=== PATIENT | male | born 1955 | race Caucasian/White ===

== ENCOUNTER → 2020-06-21 | Day surgery (SDC) | payer MEDICARE ==
[~2020-06-21] VITALS: Ht 177.8 cm; Wt 99.8 kg
[~2020-06-21] MED LIST: ECOTRIN81 MG PO; FISH OIL 1,2001 EACH PO; IMDUR ER TAB 3030 MG PO; IRON TABLET PO; LISINOPRIL10 MG PO; LOPRESSOR50 MG PO; NITROGLYCERIN0.4 MG PO; PLAVIX75 MG PO; ZOCOR40 MG PO
[2020-06-21 10:26] LABS: HEMOGLOBIN 12.8 gm/dl (14.0-17.5); RED BLOOD COUNT 4.3 M/UL (4.20-5.50); WHITE BLOOD COUNT 6.9 K/UL (4.5-11.0)
[2020-06-21 10:45] LABS: BUN/CREATININE RATIO 12 (0-10)
== END | disposition home or self-care (01) ==
LOC: OR 09:24
PROVIDERS: Surgery
DX: I70.213 Atherosclerosis of native arteries of extremities with intermittent claudication, bilateral legs (principal); I25.10 Atherosclerotic heart disease of native coronary artery without angina pectoris; I35.0 Nonrheumatic aortic (valve) stenosis; I70.92 Chronic total occlusion of artery of the extremities; I74.09 Other arterial embolism and thrombosis of abdominal aorta; I25.2 Old myocardial infarction; I10 Essential (primary) hypertension; E66.9 Obesity, unspecified; E78.5 Hyperlipidemia, unspecified; Z95.820 Peripheral vascular angioplasty status with implants and grafts
CPT/HCPCS: 71045; 75630; 76000; 80053; 81001; 82962; 85025; 85610; 85730; 86850; 86900; 86901; 93005; C1769; C1887; J0690; J1644; J2001; J2250; J2405; J2704; J2720; J3010; J7030; J7040; J7050; J7120; Q9962

== ENCOUNTER → 2020-07-05 | Outpatient (CLI) | payer MEDICARE | LOC: CT 06-28 10:00 | DX: I71.4 Abdominal aortic aneurysm, without rupture (principal); I77.819 Aortic ectasia, unspecified site; I70.1 Atherosclerosis of renal artery; I74.09 Other arterial embolism and thrombosis of abdominal aorta | CPT/HCPCS: Q9967 ==